=== PATIENT | female | born 1955 | race Caucasian/White ===

== ENCOUNTER → 2023-12-16 10:21 | Outpatient (REF) | payer MEDICARE, OTHER, SELFPAY | LOC: RAD 10:21 | PROVIDERS: ATTENDING PHYSICIAN Nurse Practitioner Adult Health; FAMILY PHYSICIAN Nurse Practitioner | DX: F17.210 Nicotine dependence, cigarettes, uncomplicated (principal) | CPT/HCPCS: 71271 ==

== ENCOUNTER → 2025-01-24 13:20 | Outpatient (REF) | payer MEDICARE, OTHER, SELFPAY | LOC: RAD 13:20 | PROVIDERS: ATTENDING PHYSICIAN Nurse Practitioner Adult Health | DX: F17.210 Nicotine dependence, cigarettes, uncomplicated (principal) | CPT/HCPCS: 71271 ==